=== PATIENT | female | born 1985 | race Two or more races ===

== ENCOUNTER 2021-09-20 12:35 | Emergency (ER) | payer OTHER, SELFPAY ==
[2021-09-20 12:58] VITALS: BP 122/77; PULSE 65; RESP 18; TEMP 36.6; O2SAT 98; BMI 24.2
[2021-09-20 13:21] LABS: MANUAL DIFF FLAG NO
[2021-09-20 13:23] LABS: Basophils Percent Auto 0.3 % (0-2); Eosinophils Absolute Auto 0.1 X10*3/uL (0.0-0.4); Eosinophils Percent Auto 1.1 % (0-4); Hematocrit 42.4 % (37.0-47.0); Hemoglobin 14.2 g/dl (12.0-16.0); Imm Gran Abs Auto 0.03 X10*3/uL (0.00-0.03); Imm Gran Pct Auto 0.3 % (0.0-0.4); Lymphocytes Absolute Auto 1.9 X10*3/uL (1.2-4.9); Lymphocytes Percent Auto 20.2 % (20-40); Mean Corpuscular HGB Conc 33.5 g/dl (31.0-35.0); Mean Corpuscular Hemoglobin 28.7 pg (27.0-33.0); Mean Corpuscular Volume 85.8 fL (80.0-98.0); Mean Platelet Volume 10.8 fL (9.4-12.3); Monocytes Absolute Auto 0.4 X10*3/uL (0.1-1.2); Monocytes Percent Auto 3.8 % (2-11); Neutrophils Absolute Auto 6.9 x10*3/uL (2.0-8.3); Neutrophils Percent Auto 74.3 % (45-73); Platelet Count 249 X10*3/uL (160-400); Red Blood Count 4.94 X10*6/uL (4.20-5.50); Red Cell Distribution Width 13.8 % (11.0-16.0); White Blood Count 9.3 X10*3/uL (4.8-10.8)
[2021-09-20 13:24] LABS: Appearance Urine HAZY; Color Urine YELLOW; Glucose Urine UA NEG (NEG); Leukocyte Esterase Urine NEG (NEG); Nitrite Urine NEG (NEG); PH 7.5 (5.0-8.0); UPreg QC Valid YES; Urine Blood NEG (NEG); Urine Ketones NEG (NEG); Urine Protein NEG (NEG-TRACE)
[2021-09-20 13:26] LABS: Urine Pregnancy NEGATIVE (NEGATIVE)
[2021-09-20 13:43] LABS: Anion Gap 10 (12-20); Blood Urea Nitrogen 9 mg/dL (9-16); Calcium 9.1 mg/dL (8.4-10.2); Carbon Dioxide 25 mmol/L (22-29); Chloride 109 mmol/L (96-108); Creatinine Clr Calc Pharmacy 83.2; Estimated Glomerular Filt Rate > 60; Glucose Random 99 mg/dL (60-115); Potassium 4.1 mmol/L (3.3-5.1); Sodium 140 mmol/L (135-145)
[2021-09-20 13:53] LABS: HCG Quantitative < 2 mIU/mL
== END 2021-09-20 16:34 | disposition left against medical advice (07) ==
PROVIDERS: Emergency Provider Emergency Medicine
DX: R11.10 Vomiting, unspecified (principal); R10.30 Lower abdominal pain, unspecified; Z79.899 Other long term (current) drug therapy
CPT/HCPCS: 36415; 80048; 81003; 81025; 84702; 85025; 99282; 99283

== ENCOUNTER 2021-10-12 21:10 | Emergency (ER) | payer OTHER, SELFPAY ==
--- NOTE | ~2021-10-12 | US_ITS ---
EXAMINATION: US OBSTETRICAL ULTRASOUND CLINICAL INFORMATION: Vaginal bleeding COMPARISON: None. LMP: 08/31/2021. Gestational age by maternal dates is 6 weeks 0 days. Estimated date of delivery by maternal dates is 06/07/2022. TECHNIQUE: Transabdominal and endovaginal ultrasound was performed FINDINGS: A gestational sac and yolk sac are seen but no pole is identified. The right maternal ovary measures 2.4 x 1.5 x 2.0 cm. The left maternal ovary measures 4.6 x 2.7 x 4.9 cm which includes a 3.5 x 2.3 x 2.6 cm complex cyst. Small amount of fluid is present in the left adnexa US/US OB pelvic and transvaginal IMPRESSION: A gestational sac is seen along with a yolk sac but a pole is not identified. Possibly poorly for detection. Recommend correlation with hCG and repeat interval ultrasound. Complex left ovarian cyst
[2021-10-12 21:36] VITALS: BP 113/62; PULSE 68; RESP 18; TEMP 37; O2SAT 98; BMI 24.8
[2021-10-12 22:08] LABS: MANUAL DIFF FLAG NO
[2021-10-12 22:10] LABS: Appearance Urine CLEAR; Basophils Percent Auto 0.4 % (0-2); Color Urine YELLOW; Eosinophils Absolute Auto 0.1 X10*3/uL (0.0-0.4); Eosinophils Percent Auto 1.4 % (0-4); Glucose Urine UA NEG (NEG); Hematocrit 38.9 % (37.0-47.0); Hemoglobin 13.4 g/dl (12.0-16.0); Imm Gran Abs Auto 0.04 X10*3/uL (0.00-0.03); Imm Gran Pct Auto 0.4 % (0.0-0.4); Leukocyte Esterase Urine NEG (NEG); Lymphocytes Percent Auto 19.2 % (20-40); Mean Corpuscular HGB Conc 34.4 g/dl (31.0-35.0); Mean Corpuscular Hemoglobin 28.9 pg (27.0-33.0); Mean Platelet Volume 10.8 fL (9.4-12.3); Monocytes Absolute Auto 0.5 X10*3/uL (0.1-1.2); Monocytes Percent Auto 4.4 % (2-11); Neutrophils Absolute Auto 7.5 x10*3/uL (2.0-8.3); Neutrophils Percent Auto 74.2 % (45-73); Nitrite Urine NEG (NEG); PH 5.5 (5.0-8.0); Platelet Count 208 X10*3/uL (160-400); Red Blood Count 4.63 X10*6/uL (4.20-5.50); Red Cell Distribution Width 13.8 % (11.0-16.0); Specific Gravity - Urine 1.015 (1.005-1.025); Urine Blood NEG (NEG); Urine Ketones NEG (NEG); Urine Protein NEG (NEG-TRACE); White Blood Count 10.2 X10*3/uL (4.8-10.8)
[2021-10-12 22:26] LABS: Alanine Aminotransferase 15 U/L (0-31); Albumin Level 4.4 g/dL (3.5-5.0); Alkaline Phosphatase 97 U/L (39-117); Anion Gap 12 (12-20); Aspartate Amino Transferase 16 U/L (5-31); Bilirubin Total 0.3 mg/dL (0.0-1.0); Blood Urea Nitrogen 11 mg/dL (9-16); Calcium 9.4 mg/dL (8.4-10.2); Carbon Dioxide 25 mmol/L (22-29); Chloride 106 mmol/L (96-108); Creatinine Clr Calc Pharmacy 76.6; Estimated Glomerular Filt Rate > 60; Glucose Random 92 mg/dL (60-115); Potassium 3.8 mmol/L (3.3-5.1); Sodium 139 mmol/L (135-145); Total Protein 7.1 g/dL (6.5-8.0)
[2021-10-13 00:10] VITALS: BP 134/74; PULSE 68; RESP 16; TEMP 36.7; O2SAT 100
--- NOTE | 2021-10-13 01:00 | ED.PREGNANCY ---
HPI - General Chief complaint: Vaginal Bleeding Stated complaint: edc 3/8 lower abd pain,spotting Time Seen by Provider: 10/13/21 00:59 Source: patient Mode of arrival: ambulatory History of Present Illness HPI Narrative: 36-year-old female, who presents with vaginal spotting and LMP 08/31/2021. Patient describes a little intermittent abdominal cramping but otherwise denies any fever, chills, GI or symptoms. Based on LMP: 6 weeks and 1 day. Related Data Allergies Allergy/AdvReac Type Severity Reaction Status Date / Time No Known Allergies Allergy Verified 10/12/21 21:36 Review of Systems Review of Systems: Pertinent positives and negatives as stated in HPI 10 point review of systems is otherwise negative. [facility] Past Medical History Source: nursing notes reviewed Social History Social History Advance Directives: No Physical Exam Vital Signs: Vital Signs: Last Vital Signs Temp 98.1 F 10/13/21 00:10 Pulse 68 10/13/21 00:10 Resp 16 10/13/21 00:10 BP 134/74 10/13/21 00:10 Pulse Ox 100 10/13/21 00:10 O2 Del Method 10/13/21 00:10 BMI result Body Mass Index 24.8 VITAL SIGNS: Reviewed. GENERAL: Well developed, well nourished, in no acute distress. HEAD: Normocephalic/atraumatic EYES: PERRLA, EOMI EARS: Ext canals without abnormality OROPHARYNX: no oral lesions noted, posterior pharynx clear and non-erythematous without noted tonsillar enlargement/erythema/exudates NECK: Supple, no adenopathy LUNGS: Normal breath sounds. No adventitious sounds or accessory muscle use. SpO2<100> CARDIOVASCULAR: Regular rate and rhythm without noted murmurs, no JVD or lower extremity edema. ABDOMEN: Soft, non-tender, non-distended with bowel sounds. MUSCULOSKELETAL: No tenderness, deformities, or effusions noted on gross inspection. EXTREMITIES: No cyanosis, clubbing or edema. SKIN: Inspection of the skin reveals no rashes NEUROLOGIC: Alert and oriented x 4. Strength and sensation to light touch were grossly intact x 4. Course Course Course Narrative: 36-year-old female with history and clinical presentation consistent with first-trimester spotting, ?SAB, possible threatened . Review of all investigations shows a gestational sac with a yolk sac but pole is not identified at this time. Patient was provided with all results and discharged home in stable condition with instructions to follow-up with primary care provider/aviation project manager. MDM - OB/Uterine Contractions Lab Data Result diagrams: 10/12/21 22:03 10/12/21 22:03 Labs: Lab Results 10/12/21 10/12/21 10/12/21 Range/Units 22:03 22:03 22:03 WBC 10.2 (4.8-10.8) X10*3/uL RBC 4.63 (4.20-5.50) X10*6/uL Hgb 13.4 (12.0-16.0) g/dl Hct 38.9 (37.0-47.0) % MCV 84.0 (80.0-98.0) fL MCH 28.9 (27.0-33.0) pg MCHC 34.4 (31.0-35.0) g/dl RDW 13.8 (11.0-16.0) % Plt Count 208 (160-400) X10*3/uL MPV 10.8 (9.4-12.3) fL Immature Gran % (Auto) 0.4 (0.0-0.4) % Neut % (Auto) 74.2 H (45-73) % Lymph % (Auto) 19.2 L (20-40) % [place] % (Auto) 4.4 (2-11) % Eos % (Auto) 1.4 (0-4) % Baso % (Auto) 0.4 (0-2) % Lymph # (Auto) 2.0 (1.2-4.9) X10*3/uL [place] # (Auto) 0.5 (0.1-1.2) X10*3/uL Eos # (Auto) 0.1 (0.0-0.4) X10*3/uL Baso # (Auto) 0.0 (0.0-0.2) X10*3/uL Abs Immat Gran (auto) 0.04 H (0.00-0.03) X10*3/uL Absolute Neuts (auto) 7.5 (2.0-8.3) x10*3/uL Absolute Nucleated RBC 0.000 (0.0-0.012) X10*3/uL Nucleated RBC % (auto) 0.0 (0.0-0.2) /100WBC Sodium 139 (135-145) mmol/L Potassium 3.8 (3.3-5.1) mmol/L Chloride 106 (96-108) mmol/L Carbon Dioxide 25 (22-29) mmol/L Anion Gap 12 (12-20) BUN 11 (9-16) mg/dL Creatinine 0.78 (0.5-1.4) mg/dL Estim Creat Clear Calc 76.6 Estimated GFR > 60 Random Glucose 92 (60-115) mg/dL Calcium 9.4 (8.4-10.2) mg/dL Total Bilirubin 0.3 (0.0-1.0) mg/dL AST 16 (5-31) U/L ALT 15 (0-31) U/L Alkaline Phosphatase 97 (39-117) U/L Total Protein 7.1 (6.5-8.0) g/dL Albumin 4.4 (3.5-5.0) g/dL Beta HCG, Quant 05311 mIU/mL Urine Color YELLOW Urine Appearance CLEAR Urine pH 5.5 (5.0-8.0) Ur Specific [place] 1.015 (1.005-1.025) Urine Protein NEG (NEG-TRACE) MG/DL Urine Glucose (UA) NEG (NEG) MG/DL Urine Ketones NEG (NEG) MG/DL Urine Blood NEG (NEG) Urine Nitrite NEG (NEG) Ur Leukocyte Esterase NEG (NEG) Discharge Plan Discharge Clinical Impression: Vaginal bleeding, Threatened Patient Disposition: Home, Self-Care Instructions: Threatened Miscarriage (ED) Additional Instructions: 1. Continue to drink plenty of water, start vitamins, and take Tylenol for pain. 2. Follow-up with your primary care provider and/or aviation project manager. Return to the ER for worsening symptoms.
== END 2021-10-13 01:33 | disposition home or self-care (01) ==
PROVIDERS: Emergency Provider Student in an Organized Health Care Education/Training Program
DX: O20.0 Threatened abortion (principal); N93.8 Other specified abnormal uterine and vaginal bleeding; R10.9 Unspecified abdominal pain; Z3A.01 Less than 8 weeks gestation of pregnancy; Z79.899 Other long term (current) drug therapy
CPT/HCPCS: 36415; 76801; 76817; 80053; 81003; 84702; 85025; 99283; 99284

== ENCOUNTER 2023-06-10 08:09 | Emergency (ER) | payer MEDICAID, SELFPAY ==
--- NOTE | ~2023-06-10 | XR_ITS ---
Examination: Left shoulder and chest x-ray CLINICAL INDICATION: Left shoulder pain and left thumb pain COMPARISON: None. TECHNIQUE: Chest 2 views. Left shoulder 3 views FINDINGS: Left shoulder: There is no visible acute fracture, dislocation or subluxation. There is a small artifact likely a Bartholin along the left shoulder. The joint spaces are maintained normal. No soft tissue calcification. CHEST: The lungs are well-expanded and clear. Heart size and pulmonary vascularity is normal. No gross bony abnormality seen. Impression unremarkable chest exam. Unremarkable left shoulder exam.
[2023-06-10 08:11] VITALS: BP 138/82; PULSE 66; O2SAT 99
[2023-06-10 08:12] VITALS: BP 119/70; PULSE 61; RESP 19; TEMP 36.6; O2SAT 98; BMI 25.4
--- NOTE | 2023-06-10 09:09 | ECG_ITS ---
Test Reason : left arm pain Blood Pressure : / mmHG Vent. Rate : 056 BPM Atrial Rate : 056 BPM P-R Int : 188 ms QRS Dur : 090 ms QT Int : 422 ms P-R-T Axes : 015 014 030 degrees QTc Int : 407 ms Sinus bradycardia with sinus arrhythmia Otherwise normal ECG No previous ECGs available Referred By: Courtney Burnett Electronically Signed By:PENELOPE FLOOD MD
--- NOTE | 2023-06-10 09:11 | ED_ITS ---
HPI - Extremity Problem General Chief complaint: Extremity Injury, Upper Stated complaint: l arm pain,no injury per ems Time Seen by Provider: 06/10/23 09:00 Source: patient and RN notes reviewed Mode of arrival: ambulatory Limitations: no limitations History of Present Illness HPI Narrative: This is a [id number], with hx of anxiety and depression, who presents emergency department with complaints of atraumatic left arm pain and chest pain which started at 2:00 a.m. this morning. Patient states that while she was straightening her hair she suddenly developed left arm pain as well as chest pressure. She states that the pain lasted for several hours. She states that she still has slight discomfort however is significantly better since the initial onset. She describes her initial pain in her left arm as sharp and burning. She states that she has had chest pressure as well as slight shortness of breath. She denies history of similar symptoms in the past. Denies any recent trauma or injury to her arm. She reports that she is otherwise feeling well. No fevers, chills, dizziness, lightheadedness, blurred vision, cough, palpitations, abdominal pain, nausea, vomiting or diarrhea. She denies taking any medications prior to her arrival. She has a history of a heart murmur, otherwise no known cardiac history. She states that her mom had a heart attack in her 40s. She denies recent travel, surgery, hospitalizations. No other complaints or concerns at this time. Complaint: extremity pain Onset (ago): day(s) Pain Consistency: constant Location: left and upper extremity Quality: burning, stabbing and sharp Radiation: distal Relieving factors: nothing Exacerbating factors: nothing Associated symptoms: chest pain and shortness of breath Related Data Previous Rx's Medication Instructions Recorded acetaminophen 650 mg 650 mg PO Q8H PRN pain #30 tabs 06/10/23 tablet,extended release (Tylenol 8 Hour) ibuprofen 600 mg tablet 600 mg PO Q6H PRN pain #30 tabs 06/10/23 Allergies Allergy/AdvReac Type Severity Reaction Status Date / Time No Known Allergies Allergy Verified 06/10/23 08:12 Review of Systems 2 Review of Systems: Yes all other systems are reviewed and are negative Constitutional: Constitutional: Reports as per [facility] Social History Social History Advance Directives: No Advance Directives Information Provided: No Physical Exam 2 Vital Signs: Vital Signs: Last Vital Signs Temp 98.2 F 06/10/23 12:31 Pulse 62 06/10/23 12:31 Resp 16 06/10/23 12:31 BP 114/74 06/10/23 12:31 Pulse Ox 98 06/10/23 12:31 O2 Del Method Room Air 06/10/23 12:31 BMI result Body Mass Index 25.4 Const: General: cooperative, comfortable and no acute distress O rientation/consciousness: patient oriented x3 Limitations: no limitations HEENT: Head: Yes normal to inspection, Yes normocephalic and Yes atraumatic Ears: hearing grossly normal bilaterally General nose exam: Normal external nose present Face and sinus: Yes normal facial exam Mouth: Normal oral and palatal mucosa present, oropharynx normal and moist mucous membranes Throat: Yes posterior oropharynx normal Eyes: General: appearance normal, both eyes and all related structures E yelids: Yes eyelids normal Conjunctivae: conjunctivae normal Sclerae: s clerae normal Pupils: Equal, round and reactive pupils present EOM: EOMs intact bilaterally Neck: Neck: Yes normal visual inspection, Yes full ROM and Yes no lymphadenopathy Lymphatic: no lymphadenopathy noted Chest: Chest palpation & inspection: normal inspection of the chest Resp: Effort & Inspection: normal respiratory effort and able to speak in complete sentences Auscultation: clear to auscultation bilaterally, no crackles, no rales, no rhonchi and no wheezes Cardio: Rate: regular rate Rhythm: regular rhythm Heart sounds: S1 normal heart sound present and S2 normal heart sound present GI: Inspection: Yes normal to inspection Back/Spine/Pelvis: Other: No midline cervical spine tenderness. She does have tenderness palpation along the cervical paraspinous muscles as well as the left trapezius muscles with spasm noted. Skin: General skin exam: no rashes or lesions noted Trauma: no lacerations or abrasions Wounds: no wounds Neuro: General: patient oriented x3 and moves all extremities Cranial nerves: Yes Equal, round and reactive pupils present Extrem: Other: Full range of motion of the left shoulder, with diffuse tenderness throughout the musculature. No bony tenderness. Strong radial pulse. Distal sensation circulation intact General: Yes normal to inspection Right upper extremity: normal to inspection Left upper extremity: normal to inspection Right lower extremity: normal to inspection Left lower extremity: normal to inspection Course Reevaluation(s) Reevaluation #1: Patient reports worsening shooting pain, workup so far is reassuring. She has not having worsening chest pain. She reports that she has a history of carpal tunnel in her symptoms feel similar. positive phalens test. Shoulder x-ray revealing Bartholin along theleft shoulder, which could be contributing to her pain. Presentation seems to be nerve related. Will treat with anti- inflammatory. Will repeat troponin at 12:45 p.m.. Time: 11:32 Reevaluation #2: Patient's symptoms have improved. Second troponin negative. Symptoms likely due to radiculopathy versus arm pain, advised to take ibuprofen or Tylenol as needed for pain. Given orthopedic referral given cyst seen along left shoulder, which may be contributing to her pain. Patient understands agrees with plan. Patient given return precautions. She understands and agrees with plan. Stable for discharge. Time: 13:25 Medications Administered Discontinued Medications Generic Name Dose Route Start Last Admin Trade Name Enriqueq PRN Reason Stop Dose Admin Ibuprofen 600 mg 06/10/23 11:31 06/10/23 11:44 Ibuprofen 600 Mg Tablet PO 06/10/23 11:32 600 mg ONCE ONE Administration Medical Decision Making Medical Decision Making [facility] Narrative: This is a 37-year-old female, with a history of anxiety and depression, presenting to the emergency department for evaluation of left arm pain and chest pain which started at 2:00 a.m. this morning. On arrival, vital signs within normal limits. On examination, patient has tenderness palpation along the left trapezius muscle. Given atraumatic left arm pain with associated chest pain, ACS is on my differential. Her mother also had heart attack in her 40s. Differential diagnoses include ACS, muscle spasm, cervical radiculopathy. Less likely pulmonary embolism as she is PERC negative and has no risk factors. Patient is nontoxic appearing, under no acute distress. Plan: Labs, EKG, chest x-ray, left shoulder x-ray Differential Diagnosis Differential Diagnoses: The differential diagnosis associated with the presentation includes See above Admission/Observation Consideration of admission/observation: Escalation of care including admission/observation considered Lab Data [facility] Lab Attestation statement: I reviewed the patient's lab results. No leukocytosis, stable H&H, chemistry nondiagnostic, mild hyperglycemia at 1:31 a.m., she is nonfasting. Troponin x2 unremarkable. 06/10/23 09:45 06/10/23 09:45 Labs: Lab Results 06/10/23 06/10/23 Range/Units 09:45 12:49 WBC 6.9 (4.8-10.8) X10*3/uL RBC 4.79 (4.20-5.50) X10*6/uL Hgb 13.9 (12.0-16.0) g/dl Hct 40.1 (37.0-47.0) % MCV 83.7 (80.0-98.0) fL MCH 29.0 (27.0-33.0) pg MCHC 34.7 (31.0-35.0) g/dl RDW 13.1 (11.0-16.0) % Plt Count 237 (160-400) X10*3/uL MPV 10.8 (9.4-12.3) fL Immature Gran % (Auto) 0.3 (0.0-0.4) % Neut % (Auto) 61.7 (45-73) % Lymph % (Auto) 29.5 (20-40) % [place] % (Auto) 5.1 (2-11) % Eos % (Auto) 2.8 (0-4) % Baso % (Auto) 0.6 (0-2) % Lymph # (Auto) 2.0 (1.2-4.9) X10*3/uL [place] # (Auto) 0.4 (0.1-1.2) X10*3/uL Eos # (Auto) 0.2 (0.0-0.4) X10*3/uL Baso # (Auto) 0.0 (0.0-0.2) X10*3/uL Abs Immat Gran (auto) 0.02 (0.00-0.03) X10*3/uL Absolute Neuts (auto) 4.2 (2.0-8.3) x10*3/uL Absolute Nucleated RBC 0.000 (0.0-0.012) X10*3/uL Nucleated RBC % (auto) 0.0 (0.0-0.2) /100WBC Sodium 142 (135-145) mmol/L Potassium 3.4 (3.3-5.1) mmol/L Chloride 110 H (96-108) mmol/L Carbon Dioxide 25 (22-29) mmol/L Anion Gap 10 L (12-20) BUN 8 L (9-16) mg/dL Creatinine 0.71 (0.5-1.4) mg/dL Estim Creat Clear Calc 84.3 Estimated GFR > 60 Random Glucose 131 H (60-115) mg/dL Calcium 9.2 (8.4-10.2) mg/dL Total Bilirubin 0.3 (0.0-1.0) mg/dL Direct Bilirubin 0.1 (0.0-0.5) mg/dL AST 15 (5-31) U/L ALT 12 (0-31) U/L Alkaline Phosphatase 80 (39-117) U/L Troponin I High Sens < 2.7 < 2.7 (<3.5-17.0) ng/L Total Protein 6.8 (6.5-8.0) g/dL Albumin 4.2 (3.5-5.0) g/dL Independent Interpretation I performed an independent interpretation of an: EKG Interpretation: EKG sinus bradycardia with sinus arrhythmia at a ventricular rate of 56 beats per minute, inverted T-waves noted in V2, otherwise no ST elevation or depression. CA interval 188, QTC 407. Radiology Impression Discussion of test interpretation with radiology: I have reviewed the radiologist's reading. Radiologist Impression: CLINICAL INDICATION: Left shoulder pain and left thumb pain COMPARISON: None. TECHNIQUE: Chest 2 views. Left shoulder 3 views FINDINGS: Left shoulder: There is no visible acute fracture, dislocation or subluxation. There is a small artifact likely a Bartholin along the left shoulder. The joint spaces are maintained normal. No soft tissue calcification. CHEST: The lungs are well-expanded and clear. Heart size and pulmonary vascularity is normal. No gross bony abnormality seen. Impression unremarkable chest exam. Unremarkable left shoulder exam. Dictated By: Bryan Wild MD Examination: Left shoulder and chest x-ray CLINICAL INDICATION: Left shoulder pain and left thumb pain COMPARISON: None. TECHNIQUE: Chest 2 views. Left shoulder 3 views FINDINGS: Left shoulder: There is no visible acute fracture, dislocation or subluxation. There is a small artifact likely a Bartholin along the left shoulder. The joint spaces are maintained normal. No soft tissue calcification. CHEST: The lungs are well-expanded and clear. Heart size and pulmonary vascularity is normal. No gross bony abnormality seen. Impression unremarkable chest exam. Unremarkable left shoulder exam. Dictated By: Bryan Wild MD Prescription Management I considered prescription management with: Pain Medication Scores Heart Score History: -0- slightly suspicious ECG: -0- normal Age: -0- < or = 45 Risk factory: -0- no risk factors known Troponin: -0- < or = normal limit Score: 0 Risk: 1.7% Discharge Plan Discharge Clinical Impression: Arm pain, left Patient Disposition: Home, Self-Care Instructions: Arm Pain (ED) Additional Instructions: Your seen in the emergency department due to left arm pain. Your workup today was reassuring. Chest x-ray was normal. Your EKG is normal. Your shoulder x-ray does reveal a cyst, this could potentially be causing you to have some pain and symptoms. Your pain is likely due to inflammation as well as potentially nerve pain. Please rest, gentle range of motion and massage. May alternate between ibuprofen and Tylenol as needed. If you continue to have pain, you may follow-up with Orthopedics, call to make an appointment. If any new or worsening symptoms occur including but not limited to chest pain, shortness of breath, dizziness, blurred vision, please return for re-evaluation. Prescriptions: New ibuprofen 600 mg tablet 600 mg PO Q6H PRN (Reason: pain) Qty: 30 0RF acetaminophen [Tylenol 8 Hour] 650 mg tablet extended release 650 mg PO Q8H PRN (Reason: pain) Qty: 30 0RF Referrals: [facility] Orth[facility] Surgeons [Provider Group] Stand Alone Forms: Work/School Release
[2023-06-10 09:50] LABS: MANUAL DIFF FLAG NO
[2023-06-10 09:51] LABS: Basophils Percent Auto 0.6 % (0-2); Eosinophils Absolute Auto 0.2 X10*3/uL (0.0-0.4); Eosinophils Percent Auto 2.8 % (0-4); Hematocrit 40.1 % (37.0-47.0); Hemoglobin 13.9 g/dl (12.0-16.0); Imm Gran Abs Auto 0.02 X10*3/uL (0.00-0.03); Imm Gran Pct Auto 0.3 % (0.0-0.4); Lymphocytes Percent Auto 29.5 % (20-40); Mean Corpuscular HGB Conc 34.7 g/dl (31.0-35.0); Mean Corpuscular Volume 83.7 fL (80.0-98.0); Mean Platelet Volume 10.8 fL (9.4-12.3); Monocytes Absolute Auto 0.4 X10*3/uL (0.1-1.2); Monocytes Percent Auto 5.1 % (2-11); Neutrophils Absolute Auto 4.2 x10*3/uL (2.0-8.3); Neutrophils Percent Auto 61.7 % (45-73); Platelet Count 237 X10*3/uL (160-400); Red Blood Count 4.79 X10*6/uL (4.20-5.50); Red Cell Distribution Width 13.1 % (11.0-16.0); White Blood Count 6.9 X10*3/uL (4.8-10.8)
[2023-06-10 10:20] LABS: Alanine Aminotransferase 12 U/L (0-31); Albumin Level 4.2 g/dL (3.5-5.0); Alkaline Phosphatase 80 U/L (39-117); Anion Gap 10 (12-20); Aspartate Amino Transferase 15 U/L (5-31); Bilirubin Direct 0.1 mg/dL (0.0-0.5); Bilirubin Total 0.3 mg/dL (0.0-1.0); Blood Urea Nitrogen 8 mg/dL (9-16); Calcium 9.2 mg/dL (8.4-10.2); Carbon Dioxide 25 mmol/L (22-29); Chloride 110 mmol/L (96-108); Creatinine Clr Calc Pharmacy 84.3; Estimated Glomerular Filt Rate > 60; Glucose Random 131 mg/dL (60-115); Potassium 3.4 mmol/L (3.3-5.1); Sodium 142 mmol/L (135-145); Total Protein 6.8 g/dL (6.5-8.0)
[2023-06-10 10:30] LABS: Troponin-I High Sensitivity < 2.7 ng/L (<3.5-17.0)
[2023-06-10] MEDS: Ibuprofen 600 MG TABLET PO (11:44)
--- NOTE | 2023-06-10 11:47 | PC.NURSE ---
medicated per MAR
[2023-06-10 12:31] VITALS: BP 114/74; PULSE 62; RESP 16; TEMP 36.8; O2SAT 98
[2023-06-10 13:16] LABS: Troponin-I High Sensitivity < 2.7 ng/L (<3.5-17.0)
== END 2023-06-10 13:37 | disposition home or self-care (01) ==
PROVIDERS: Physician Assistant Medical; Emergency Provider Student in an Organized Health Care Education/Training Program
DX: S49.92XA Unspecified injury of left shoulder and upper arm, initial encounter (principal); M79.602 Pain in left arm; R07.89 Other chest pain; X50.3XXA Overexertion from repetitive movements, initial encounter; Y93.9 Activity, unspecified; Y92.89 Other specified places as the place of occurrence of the external cause; Y99.8 Other external cause status; Z79.899 Other long term (current) drug therapy
CPT/HCPCS: 36415; 71046; 73030; 80048; 80076; 84484; 85025; 93005; 99284

== ENCOUNTER → 2023-06-10 09:09 | Outpatient (BNV) | payer MEDICAID, SELFPAY | PROVIDERS: Emergency Provider Student in an Organized Health Care Education/Training Program; Visit Provider Internal Medicine Cardiovascular Disease | DX: M79.602 Pain in left arm (principal) | CPT/HCPCS: 93010 ==

== ENCOUNTER 2023-07-26 10:12 | Outpatient (AMB) | payer MEDICAID, SELFPAY ==
--- NOTE | 2023-07-26 10:25 | A.OFFVIS_ITS ---
Vital Signs 07/26/23 10:33 Height 4 ft 11 in Weight 126 lb BMI 25.4 Intake Visit Reasons: N/P ED visit 06/10/23 for left arm px Intake Note: Latanya a 38 year old right hand dominant female who presents today for an ER follow up of left arm pain. Patient reports that she felt sharp pain as well as numbness and tingling when she presented [place] [facility]. She had xrays and was told having a cyst in her arm. Currently she has pain with ROM and difficulty with making a closed fist. Denies injury. Finds little relief with Tylenol. NO previous tx. Allergies No Known Allergies Allergy (Verified 07/26/23 10:37) HPI HPI N/P ED visit 06/10/23 for left arm px: Details: 38-year-old right hand dominant female who presents to the office today for an ED follow-up of left arm pain. He was seen at ED on 06/10/23 for sharp pain, numbness and tingling where x-rays were performed. She currently states she has pain in her arm with ROM as well as difficulty making a closed fist. Her pain is aggravated with carrying her 1-year-old son and holding items for a long time. She also reports she cannot lay on her left side for a long time and experiences occasional sharp pain in her arm. She denies any injury and has not had any treatment in the past. She finds mild relief with Tylenol. [facility] Surgical History (Updated 07/26/23 @ 10:30 by JOSEPHINE Davey) Hx of section Social History (Updated 07/26/23 @ 10:31 by JOSEPHINE Davey) e-Cigarette/Vaping Use: Currently Using Current occupational status: unemployed Current occupation: right hand dominant Review of Systems Const All systems reviewed & are unremarkable except as noted in HPI and below Physical Exam Vital Signs: BMI result Body Mass Index 25.4 Const General: cooperative, healthy appearing, comfortable, no acute distress, well developed and alert Orientation/consciousness: patient oriented x3 HEENT Head: Yes normal to inspection, Yes normocephalic and Yes atraumatic Eyes General: appearance normal, both eyes and all related structures Resp Effort & Inspection: normal respiratory effort and able to speak in complete sentences Cardio Rate: regular rate Peripheral pulses: Peripheral pulses 2+ throughout GI Palpation (GI): Soft to palpation Skin Lesions: no lesions Rashes: no rashes Neuro General: patient oriented x3 Extrem Other: Left shoulder normal to inspection. No specific Tenderness of the shoulder. Forward flexion to 175, external rotation to 90, internal rotation to S1. 5/5 RTC strength. Negative [place] and cross body abduction. NVI. Results Reviewed Results Reviewed: xrays of the left shoulder obtained in the ED on 06/10/23 show calcific tendonitis Assessment & Plan Assessment & Plan (1) Tendonitis of left rotator cuff: Code(s): M75.82 - Other shoulder lesions, left shoulder Category: Medical Plan We discussed options which include PT, NSAIDs and injections. The patient will defer on the injection today and proceed with PT and NSAIDs. If symptoms persi st, the patient will contact me for an injection, otherwise, PRN. Orders: Orders PT Evaluation and Treatment Today M75.82 - Other shoulder lesions, left shoulder Patient Instructions: Scribed for Camila Wilson PA-C, by Randell Vargas medical staff services coordinator, on 07/26/2023 at 10:00 AM EST. I, Camila Wilson PA-C, have personally reviewed and agree with the information entered by the scribe. Coding Level of Care Code New Pt Level 3 (87189) Diagnoses Tendonitis of left rotator cuff M75.82
[2023-07-26 10:33] VITALS: BMI 25.4
== END 2023-07-26 11:00 | disposition home or self-care (01) ==
PROVIDERS: Visit Provider Physician Assistant
DX: M75.82 Other shoulder lesions, left shoulder (principal)
CPT/HCPCS: 99203

== ENCOUNTER → 2023-07-26 10:12 | Outpatient (BNVA) | payer MEDICAID, SELFPAY | PROVIDERS: Visit Provider Physician Assistant | DX: M75.82 Other shoulder lesions, left shoulder (principal) | CPT/HCPCS: 99212 ==

== ENCOUNTER 2024-06-02 16:14 | Emergency (ER) | payer SELFPAY ==
[2024-06-02 16:52] VITALS: PULSE 88; RESP 16; O2SAT 100; BMI 25.0
--- NOTE | 2024-06-02 16:52 | ED_ITS ---
HPI - General Adult General Chief complaint: Skin/Abscess/Foreign Body Stated complaint: rash spreading & painful Time Seen by Provider: 06/02/24 21:02 Source: patient Mode of arrival: ambulatory Limitations: no limitations History of Present Illness ED Provider: Maribel Ashley PA-C HPI narrative: Patient is a 38 year old assigned female at with a history of bipolar disorder presenting to the emergency department today with a rash and feeling generally unwell. Patient states that over the last 3 days she has had a rash to her left hip and chest. Patient states that over the last few days she has also had a cold and felt generally unwell. Patient states that she has been off of her psychiatric medications for the last 3 months. Patient denies any dizziness, lightheadedness, abdominal pain, nausea, vomiting, fever, chills, blurry vision, double vision, loss of vision, chest pain, difficulty breathing, shortness of breath, back pain, night sweats, pain with urination, increased urinary frequency, increased urinary urgency, blood in her urine or stool, syncope or a near syncopal episode, recent trauma or falls, bowel incontinence, bladder incontinence, or any other complaints at this time. Onset (ago): day(s) (3) Relieving factors: none Exacerbating factors: none Associated symptoms: rash Treatments prior to arrival: none Related Data Home Medications ?Medication ?Instructions ?Recorded ?Confirmed cariprazine 1.5 mg capsule 1.5 mg PO DAILY 07/26/23 (Vraylar) Previous Rx's ?Medication ?Instructions ?Recorded acetaminophen 650 mg 650 mg PO Q8H PRN pain #30 tabs 06/10/23 tablet,extended release (Tylenol 8 Hour) ibuprofen 600 mg tablet 600 mg PO Q6H PRN pain #30 tabs 06/10/23 prednisone 20 mg tablet 20 mg PO DAILY 7 days #7 tabs 06/02/24 Allergies Allergy/AdvReac Type Severity Reaction Status Date / Time latex Allergy Anaphylaxis Verified 06/02/24 16:56 Review of Systems 2 Constitutional: Constitutional: Reports no additional constitutional complaints, Denies chills, Denies fever(s) and Denies night sweats Eyes: Eyes: Reports no additional eye complaints, Denies blurry vision, Denies change in vision, Denies diplopia, Denies eye discharge, Denies loss of vision and Denies eye pain ENT: Denies dizziness Cardiovascular: Cardiovascular: Reports no additional cardiovascular complaints, Denies chest pain, Denies lightheadedness, Denies Loss of Consciousness and Denies dyspnea Respiratory: Respiratory: Reports no additional respiratory complaints, Reports cough and Denies dyspnea Gastrointestinal: Gastrointestinal: Reports no additional gastrointestinal complaints, Denies abdominal pain, Denies melena, Denies hematochezia, Denies change in bowel habits and Denies change in stool character Genitourinary: Genitourinary: Denies hematuria, Denies urinary frequency, Denies dysuria, Denies urinary incontinence, Denies urinary hesitancy and Denies urinary urgency Musculoskeletal: Musculoskeletal: Reports no additional musculoskeletal complaints, Denies numbness and Denies tingling Integumentary/Breasts: Skin/Breast: Reports rash (left hip and chest) Neurologic: Denies dizziness, Denies loss of vision, Denies numbness and Denies tingling Psychiatric: Psychiatric: Reports no additional psychiatric complaints Endocrine: Endocrine: Reports no additional endocrine complaints Hematologic/Lymphatic: Hematologic/Lymphatic: Reports no additional hematologic/lymphatic complaints Allergic/Immunologic: Allergic/Immunologic: Reports no additional allergic/immunologic complaints PMFSH Past Medical History Attestation statement: The following information was validated with the patient. Source: old records reviewed and nursing notes reviewed Surgical History Hx of section Social History Social History e-Cigarette/Vaping Use: Currently Using Advance Directives: No Advance Directives Information Provided: No Current occupational status: unemployed Current occupation: right hand dominant Physical Exam ED Vital Signs: BMI result Body Mass Index 25.0 Const General: cooperative, no acute distress, alert and awake Nutritional Appearance: well nourished Orientation/consciousness: patient oriented x3 Limitations: no limitations HENMT Head: Yes normal to inspection and Yes atraumatic Ears: hearing grossly normal bilaterally and external ears normal General nose exam: Normal external nose present, no nasal discharge noted and no epistaxis Face and sinus: Yes normal facial exam, No abrasion and No laceration Mouth: Normal oral and palatal mucosa present, no drooling and no muffled voice Eyes General: appearance normal, both eyes and all related structures Periorbital: periorbital findings normal Eyelids: Yes eyelids normal Conjunctivae: conjunctivae normal Pupils: Equal, round and reactive pupils present EOM: EOMs intact bilaterally Neck Neck: Yes normal visual inspection, Yes full ROM and Yes no lymphadenopathy Chest Chest palpation & inspection: normal inspection of the chest Resp Effort & Inspection: normal respiratory effort and able to speak in complete sentences GI Inspection: Yes normal to inspection Skin Full body images: 2 1. non-specific erythematous and dry rash 2. non-specific erythematous and dry rash Neuro General: patient oriented x3, moves all extremities and CN's II-XI intact bilaterally Cranial nerves: Yes Equal, round and reactive pupils present Cognition (Neuro): normal cognition Extrem General: Yes normal to inspection, Yes full ROM and Yes capillary refill normal Psych Appearance: grossly normal Mental Status: mental status grossly normal Affect: normal affect Attitude: cooperative Thought process: Normal thought process present Thought content: Normal thought content present Insight: Good insight present (Psych) Course Course Course Narrative: RME performed by Maribel Ashley PA-C. Patient is a 38 year old assigned female at presenting to the emergency department with a left sided hip rash and breast. Patient states that over the last few days she has had a left sided rash. Patient states that it is itchy. Patient states that she has been off all medications for months and has had nothing new. Patient's limited physical examination performed in triage showed Detailed physical exam and review of systems are deferred to the manager of patient. Labs and swabs ordered. Patient placed back in the waiting room pending room availability and results. Medical Decision Making Medical Decision Making MDM Narrative: Patient is a 38 year old assigned female at with a history of bipolar disorder presenting to the emergency department today with a rash and feeling generally unwell. Patient's physical exam was as noted in the physical exam portion of this note. Patient's rash to the left hip and entire chest was non- specific, erythematous, and dry. Patient's blood work was unremarkable. Patient's influenza test was positive. Patient's rash could be viral exanthem vs. dermatitis vs. vasculitis type rash. It is not consistent with shingles and is not painful but is itchy. I explained my physical exam findings as well as all test results to the patient. I answered all questions asked by the patient. I stressed the importance of the patient taking her medication as directed (either prescribed or as the over the counter packaging recommends). I had an extensive conversation with the patient regarding prednisone use for a non- specific rash such as she has. I explained to the patient that it may help the rash resolve faster and address the itch however, given her history of unmedicated bipolar disorder, it does carry an increased risk of triggering sissy / psychosis. Patient verbalized understanding and stated that she would like to be prescribed the prednisone anyway. I stressed the importance of the patient following up with her primary care provider and a renal dialysis technician. I stressed the importance of the patient returning to the emergency department immediately if her symptoms were to worsen or if she were to develop any dizziness, shortness of breath, difficulty breathing, chest pain, blurry vision, loss of vision, nausea, vomiting, abdominal pain, fever, chills, back pain, or any other complaints. Patient verbalized agreement and understanding with this treatment plan and discharge. Differential Diagnosis Differential Diagnoses: The differential diagnosis associated with the presentation includes Viral exanthem Viral illness Rash Dermatitis Influenza COVID-19 Admission/Observation Consideration of admission/observation: Escalation of care including admission/observation considered Patient would have been admitted to the hospital had her work up had any findings where hospital admission was appropriate and her clinical presentation warranted hospital admission. Lab Data [facility] Lab Attestation statement: I reviewed the patient's lab results. My interpretation of these results are in the [facility] Rationale portion of this note. 06/02/24 17:09 06/02/24 17:09 Labs: Lab Results 06/02/24 Range/Units 17:09 WBC 5.4 (4.8-10.8) X10*3/uL RBC 4.99 (4.20-5.50) X10*6/uL Hgb 14.6 (12.0-16.0) g/dl Hct 41.8 (37.0-47.0) % MCV 83.8 (80.0-98.0) fL MCH 29.3 (27.0-33.0) pg MCHC 34.9 (31.0-35.0) g/dl RDW 13.3 (11.0-16.0) % Plt Count 199 (160-400) X10*3/uL MPV 10.6 (9.4-12.3) fL Immature Gran % (Auto) 0.4 (0.0-0.4) % Neut % (Auto) 82.7 H (45-73) % Lymph % (Auto) 10.4 L (20-40) % [place] % (Auto) 5.4 (2-11) % Eos % (Auto) 0.7 (0-4) % Baso % (Auto) 0.4 (0-2) % Lymph # (Auto) 0.6 L (1.2-4.9) X10*3/uL [place] # (Auto) 0.3 (0.1-1.2) X10*3/uL Eos # (Auto) 0.0 (0.0-0.4) X10*3/uL Baso # (Auto) 0.0 (0.0-0.2) X10*3/uL Abs Immat Gran (auto) 0.02 (0.00-0.03) X10*3/uL Absolute Neuts (auto) 4.4 (2.0-8.3) x10*3/uL Absolute Nucleated RBC 0.000 (0.0-0.012) X10*3/uL Nucleated RBC % (auto) 0.0 (0.0-0.2) /100WBC PT 12.0 (10.9-12.4) SEC INR 1.0 (0.9-1.1) APTT 31.5 (26.0-36.8) SEC Sodium 142 (135-145) mmol/L Potassium 3.4 (3.3-5.1) mmol/L Chloride 110 H (96-108) mmol/L Carbon Dioxide 25 (22-29) mmol/L Anion Gap 10 L (12-20) BUN 6 L (9-16) mg/dL Creatinine 0.65 (0.5-1.4) mg/dL Estim Creat Clear Calc 90.5 Estimated GFR > 60 Random Glucose 94 (60-115) mg/dL Calcium 8.6 D (8.4-10.2) mg/dL Magnesium 1.9 (1.6-2.6) mg/dL Total Bilirubin 0.3 (0.0-1.0) mg/dL AST 24 (5-31) U/L ALT 19 (0-31) U/L Alkaline Phosphatase 78 (39-117) U/L Total Protein 7.6 (6.5-8.0) g/dL Albumin 4.3 (3.5-5.0) g/dL Monoscreen Negative (Negative) Influenza Type A (PCR) NEGATIVE (Negative) Influenza Type B (PCR) POSITIVE A (Negative) RSV RNA Qual (PCR) NEGATIVE (Negative) SARS-CoV-2 RNA (RT-PCR) NEGATIVE (Negative) Discharge Plan Discharge Clinical Impression: Rash, Influenza Patient Disposition: Home, Self-Care Instructions: Influenza (DC), Acute Rash (ED) Additional Instructions: Your rash is likely a response to your viral infection of Influenza. Follow up with your primary care provider. Return to the emergency department immediately if your symptoms worsen or if you develop any dizziness, shortness of breath, difficulty breathing, chest pain, blurry vision, loss of vision, nausea, vomiting, abdominal pain, fever, chills, back pain, or any other complaints. Prescriptions: New prednisone 20 mg tablet 20 mg PO DAILY 7 Days Qty: 7 0RF No Action ibuprofen 600 mg tablet 600 mg PO Q6H PRN (Reason: pain) Qty: 30 0RF acetaminophen [Tylenol 8 Hour] 650 mg tablet extended release 650 mg PO Q8H PRN (Reason: pain) Qty: 30 0RF Vraylar 1.5 mg capsule 1.5 mg PO DAILY Referrals: [facility] [Provider Group] (Call to establish and follow up with a renal dialysis technician if your rashes persists. ) Tamika Sullivan MD [Primary Care Provider] - Interventions: ED Discharge Assessment Last Done: 06/02/24 21:22 Discharge Date/Time: 06/02/24 21:23 Print Language: Khmer
[2024-06-02 17:13] LABS: MANUAL DIFF FLAG NO
[2024-06-02 17:17] LABS: Basophils Percent Auto 0.4 % (0-2); Eosinophils Percent Auto 0.7 % (0-4); Hematocrit 41.8 % (37.0-47.0); Hemoglobin 14.6 g/dl (12.0-16.0); Imm Gran Abs Auto 0.02 X10*3/uL (0.00-0.03); Imm Gran Pct Auto 0.4 % (0.0-0.4); Lymphocytes Absolute Auto 0.6 X10*3/uL (1.2-4.9); Lymphocytes Percent Auto 10.4 % (20-40); Mean Corpuscular HGB Conc 34.9 g/dl (31.0-35.0); Mean Corpuscular Hemoglobin 29.3 pg (27.0-33.0); Mean Corpuscular Volume 83.8 fL (80.0-98.0); Mean Platelet Volume 10.6 fL (9.4-12.3); Monocytes Absolute Auto 0.3 X10*3/uL (0.1-1.2); Monocytes Percent Auto 5.4 % (2-11); Neutrophils Absolute Auto 4.4 x10*3/uL (2.0-8.3); Neutrophils Percent Auto 82.7 % (45-73); Platelet Count 199 X10*3/uL (160-400); Red Blood Count 4.99 X10*6/uL (4.20-5.50); Red Cell Distribution Width 13.3 % (11.0-16.0); White Blood Count 5.4 X10*3/uL (4.8-10.8)
[2024-06-02 17:25] LABS: Monotest Negative (Negative)
[2024-06-02 17:29] LABS: Alanine Aminotransferase 19 U/L (0-31); Albumin Level 4.3 g/dL (3.5-5.0); Alkaline Phosphatase 78 U/L (39-117); Anion Gap 10 (12-20); Aspartate Amino Transferase 24 U/L (5-31); Bilirubin Total 0.3 mg/dL (0.0-1.0); Blood Urea Nitrogen 6 mg/dL (9-16); Calcium 8.6 mg/dL (8.4-10.2); Carbon Dioxide 25 mmol/L (22-29); Chloride 110 mmol/L (96-108); Creatinine Clr Calc Pharmacy 90.5; Estimated Glomerular Filt Rate > 60; Glucose Random 94 mg/dL (60-115); Magnesium 1.9 mg/dL (1.6-2.6); Partial Thromboplastin Time 31.5 SEC (26.0-36.8); Potassium 3.4 mmol/L (3.3-5.1); Sodium 142 mmol/L (135-145); Total Protein 7.6 g/dL (6.5-8.0)
[2024-06-02 17:50] LABS: Influenza A PCR NEGATIVE (Negative); Influenza B PCR POSITIVE (Negative); Resp Syncy Virus RNA Qual PCR NEGATIVE (Negative); SARS COV2 PCR INHOUSE NEGATIVE (Negative)
--- OUTSIDE RECORDS SUMMARY | 2024-06-02 19:06 | XMS_ITS | Clinical Summary ---
Author Organization [facility] Address [address] [place] [address] Care Team Providers Care Lath Hand Name Role Phone Klaudia Bunch PA-C Primary Care Provider + [phone] Source Comments PLEASE NOTE, if this patient is a minor, it may be UNLAWFUL to discuss sensitive information that is contained in these records (such as FAMILY PLANNING, MENTAL HEALTH or SUBSTANCE ABUSE) with the minor patient's parent or other person without the patient's specific authorization.[facility] Allergies Active Allergy Reactions Criticality Noted Date Comments Latex 06/16/2020 Pollen Extracts High 06/16/2020 Medications CALCIUM ANTACID 200 mg calcium (500 mg) chewable tablet CHEW 1 TABLET BY MOUTH 3 TIMES A DAY NEEDED FOR DYPEPSIA 1 Active riboflavin, vitamin B2, 400 mg tabIndications: History of migraine headaches Take 1 Tablet by mouth once daily 90 Tablet 1 2 Active SUMAtriptan succinate (IMITREX) 100 mg tabletIndicatio ns:History of migraine headaches Take 1 Tablet by mouth once daily as needed for migraine 20 Tablet 1 2 Active naproxen sodium (ANAPROX) 550 mg tabletIndicatio ns:History of migraine headaches Take 1 Tablet by mouth 2 (two) times daily with a meal Take together with sumatriptan as needed for migraines 60 Tablet 2 2 Active folic acid (FOLVITE) 1 mg tabletIndicatio ns:History of migraine headaches Take 1 Tablet by mouth once daily 90 Tablet 1 2 Active magnesium oxide (MAG-OX) 400 mg (241.3 mg magnesium) tabletIndicatio ns:History of migraine headaches Take 1 Tablet by mouth once daily Take with food food to avoid stomach upset 90 Tablet 1 2 Active hydrOXYzine HCL (ATARAX) 25 mg tabletIndicatio ns:Anxiety Take 1 Tablet by mouth 3 (three) times daily as needed for anxiety or sleep 90 Tablet 2 2 Active ARIPiprazole (ABILIFY) 5 mg tablet TAKE 1 TABLET BY MOUTH EVERYDAY AT BEDTIME 30 Tablet 1 2 Active Active Problems Problem Noted Date Diagnosed Date History of migraine headaches 08/22/2021 Bipolar I disorder, current or most recent episode depressed, mild ([facility]) 05/08/2021 Bipolar 1 disorder ([facility]) 04/13/2021 Vitamin D deficiency 04/13/2021 Anxiety 04/13/2021 Immunizations Name Administration Dates Next Due INFLUENZA, SEASONAL, INJECTABLE 01/12/2011 [facility] State Funded Flu Vaccine 02/03/2013 TDAP 01/12/2011 Family History Medical History Relation Name Comments Diabetes Father Hypertension Father Breast cancer Maternal Grandmother Diabetes Maternal Grandmother Hypertension Maternal Grandmother Diabetes Paternal Grandfather Heart attack Paternal Grandfather Relation Name Status Comments Father Maternal Grandmother Paternal Grandfather Social History Tobacco Use Types Packs/Day Years Used Date Smoking Tobacco: Some Days Cigarettes Smokeless Tobacco: Never Comments:1/2 pack. menthol Alcohol Use Standard Drinks/Week Comments Not Currently 0 (1 standard drink = 0.6 oz pur e alcohol) Social Connections Answer Date Recorded Connectedness 0 08/22/2021 Financial Resource Strain Answer Date R ecorded Financial Resource Strain 0 2021 Stress Answer Date Recorded Stress 0 08/22/2021 Physical Activity Answer Date Recorded Physical Activity 0 06/16/2020 Food Insecurity Answer Date Recorded Food 0 08/22/2021 Transportation Needs Answer Date Record ed Transportation 0 08/22/2021 Housing Stability Answer Date Recorded Housing 0 08/22/2021 Safety and Environment Answer Date Norman rded Safety 0 08/22/2021 Utilities Answer Date Recorded Utilities 0 08/22/2021 Employment Answer Date Recorded Employment 0 06/16/2020 Comments No Sex and Gender Information Value Date Recorded Sex Assigned at Female 07/18/2020 6:55 PM PDT Legal Sex Female 11:36 AM PDT Gender Identity Female 07/18/2020 6:55 PM PDT Sexual Orientation Straight 07/18/2020 6: 55 PM PDT Last Filed Vital Signs Vital Sign Reading Time Taken Comments Blood Pressure 100/76 04/13/2021 4:28 PM EST Pulse 80 04/13/2021 4:28 PM EST Temperature 37.1 ??C (98.7 ??F) 04/13/2021 4:28 PM ES T Respiratory Rate 18 04/13/2021 4:28 PM EST Oxygen Saturation - - Inhaled Oxygen Concentration - - Weight 57.6 kg (127 lb) 04/13/2021 4:28 PM EST Height 149.9 cm (4' 11 ) 04/13/2021 4:28 PM EST Body Mass Index 25.65 04/13/2021 4:28 PM EST Plan of Treatment Health Maintenance Due Date Last Done Comments Diabetes Screening 1986 HPV Screening 1986 Hepatitis C Screening 1986 Lipid Screening 1986 Pap + HPV 1986 Tobacco Cessation Counseling (#1) 1986 Tobacco Screening 1986 HIV Screening 2001 Annual Preventive Care Visit 2004 Imm-Hepatitis B (1 of 3 - 19 + 3-dose series) 2005 Imm-Pneumococcal (1 of 2 - PCV) 2005 Cervical Cancer Screening 07/07/2007 Pap Smear 07/07/2007 Imm-DTaP/Tdap/Td (2 - Td or Tdap) 01/12/2021 011 Hypertension Screening (#1) 04/13/2022 Relationship Safety Screening/Counseling 08/22/2022 08/22/2021, 06/13/2021, 06/16/2020 [id number] ( season) 2023 Imm-Influenza (#1) 2023 02/03/2013, 01/12/2011 Alcohol and Drug Screen 04/02/2024 08/23/19, 06/13/2021, 06/16/2020 Depression Annual Screen 04/02/2024 08/22/2021 Cervical Ablation/Cold-Knife Conization Discontinued Cervical Cryotherapy Discontinued Colposcopy Discontinued Endometrial Biopsy Discontinued Excision/Leep Discontinued HPV Genotyping Discontinued Vaginal Pap Discontinued Vulvoscopy Discontinued Insurance [place] [employer] [address] [employer] Care Teams Lath Hand Relationship Specialty Start Date End Date Klaudia Bunch PA-C [address] [place] [address] PCP - General FAMILY MEDICINEJULIANA 05/18/20
--- OUTSIDE RECORDS SUMMARY | 2024-06-02 19:06 | XMS_ITS | Clinical Summary ---
Author Organization [facility] Address [address] [place] [address] Phone Care Team Providers [employer] Name Role Phone Physician, Pcp Unknown Primary Care Provider Frida vailable Allergies Active Allergy Reactions Criticality Noted Date Comments Latex, Natural Rubber Rash Medium 02/24/2024 Medical History Medical History Date Comments Depression Bipolar 1 disorder (CMS/HCC) Schizo-affective type schizophrenia, chronic sta te ([facility] Social History Tobacco Use Types Packs/Day Years Used Date Smoking Tobacco: Never Smokeless Tobacco: Never Tobacco Cessation:Counseling Given: Not Answered Comments Unknown Sex and Gender Information Value Date Recorded Sex Assigned at Not on file Legal Sex Female 3:40 PM EST Gender Identity Not on file Sexual Orientation Not on file Obstetrics History Last Filed Vital Signs Vital Sign Reading Time Taken Comments Blood Pressure 117/73 02/24/2024 3:50 PM EST Pulse 69 02/24/2024 3:50 PM EST Temperature 36.8 ??C (98.3 ??F) 02/24/2024 3:50 PM ES T Respiratory Rate 16 02/24/2024 3:50 PM EST Oxygen Saturation 100% 02/24/2024 3:50 PM EST Inhaled Oxygen Concentration - - Weight 54.4 kg (120 lb) 02/24/2024 3:50 PM EST Height 149.9 cm (4' 11 ) 02/24/2024 3:50 PM EST Body Mass Index 24.24 02/24/2024 3:50 PM EST Plan of Treatment Health Maintenance Due Date Last Done Comments Hepatitis B Vaccines (1 of 3 - 19+ 3-dose series) 2005 Cervical Cancer Screening: P ap Smear 07/07/2007 DTaP,Tdap,and Td Vaccines (2 - Td or Tdap) 01/12/2021 01/12/2011 COVID-19 Vaccine (1 - 2023-2 5 season) 2023 Influenza Vaccine (#1) 2023 3, 01/12/2011 Depression Screening 02/24/2024 08/22/2021 HIV Screening 02/24/2024 Hepatitis C Screening 02/24/2024 Social Influencers of Health Screening 02/24/2024 HIB Vaccines Aged Out No longer eligi ble based on patient's age to complete this topic HPV Vaccines Aged Out No longer eligi ble based on patient's age to complete this topic Hepatitis A Vaccines Aged Out No long er eligible based on patient's age to complete this topic IPV Vaccines Aged Out No longer eligi ble based on patient's age to complete this topic MMR Vaccines Aged Out No longer eligi ble based on patient's age to complete this topic Meningococcal ACWY Vaccine Aged Out N o longer eligible based on patient's age to complete this topic Meningococcal B Vacine Aged Out No lo nger eligible based on patient's age to complete this topic Pneumococcal Vaccine: Pediatrics (0 to 5 Years) and At-Risk Patients (6 to 64 Years) Aged Out No longer eligible b ased on patient's age to complete this topic RSV Immunization Patients Under 20 months Aged Out No longer eligible b ased on patient's age to complete this topic Varicella Vaccines Aged Out No longer eligible based on patient's age to complete this topic Insurance [place] Care Teams Solutions Executive Security Relationship Specialty Start Date End Date Physician, Pcp Unknown PCP - General 02/24/24
[2024-06-02 21:22] VITALS: BP 132/69; PULSE 84; RESP 18; TEMP 37; O2SAT 96
== END 2024-06-02 21:23 | disposition home or self-care (01) ==
PROVIDERS: Physician Assistant Medical; Emergency Provider Emergency Medicine Emergency Medical Services; PCP Internal Medicine Hematology & Oncology
DX: R21 Rash and other nonspecific skin eruption (principal); J11.1 Influenza due to unidentified influenza virus with other respiratory manifestations
CPT/HCPCS: 0241U; 36415; 80053; 83735; 85025; 85610; 85730; 86308; 99282; 99283